=== PATIENT | female | born 1940 | race Caucasian/White ===

== ENCOUNTER 2017-09-01 14:06 | Emergency (ER) | payer OTHER, MEDICARE ==
[~2017-09-01] VITALS: Ht 157.5 cm; Wt 59.0 kg
[2017-09-01 14:13] VITALS: BP 162/86
--- NOTE | 2017-09-01 15:58 | CT SCAN REPORT ---
EXAMINATION: CT HEAD WITHOUT CONTRAST CLINICAL INFORMATION: MS history. Seizures the past few days COMPARISON: None. TECHNIQUE: Contiguous axial imaging was performed from the skull base to vertex without intravenous administration of contrast. The images are degraded by motion artifact. DLP: 612 mGy-cm. FINDINGS: There is no intracranial hemorrhage, large infarction, or mass lesion. There is no extra-axial collection. There is moderate scattered hypoattenuation in the bilateral cerebral white matter. There is mild diffuse brain parenchymal volume loss. There is no evidence of hydrocephalus. The visualized paranasal sinuses and mastoid air cells are clear. IMPRESSION: No acute intracranial abnormality. Moderate hypoattenuation in the bilateral cerebral white matter which is nonspecific and could represent changes related to reported history of MS or small vessel ischemia.
[2017-09-01 16:35] LABS: ABSOLUTE BASOPHIL COUNT 0 /CUMM (0.0-0.2); ABSOLUTE EOSINOPHIL COUNT 0.1 /CUMM (0.0-0.7); ABSOLUTE GRANULOCYTE CT 10.6 /CUMM (1.4-6.5); ABSOLUTE LYMPH COUNT 1.1 /CUMM (1.2-3.4); ABSOLUTE MONOCYTE COUNT 0.5 /CUMM (0.10-0.60); BASOPHIL % 0.2 % (0.0-2.0); EOSINOPHIL % 0.5 % (0-5); HEMATOCRIT 39.2 % (37-47); MEAN CORPUSCULAR HGB 30.8 PG (27.0-31.0); MEAN CORPUSCULAR HGB CONC 33.7 G/DL (33.0-37.0); MEAN CORPUSCULAR VOLUME 91.5 FL (81.0-99.0); MEAN PLATELET VOLUME 8.9 FL (7.4-10.4); PLATELET COUNT 219 /CUMM (130-400); RBC DISTRIBUTION WIDTH 13.2 % (11.5-14.5); RED BLOOD CELL CT 4.28 /CUMM (4.20-5.40); WHITE BLOOD CELL COUNT 12.3 /CUMM (4.8-10.8)
--- NOTE | 2017-09-01 16:44 | ED GENERAL ADULT ---
History of Present Illness General Chief Complaint: Seizure Stated Complaint: Right face pain Source: patient, family Exam Limitations: no limitations Vital Signs & Intake/Output Vital Signs & Intake/Output Vital Signs Date Time Temp Pulse Resp B/P B/P Pulse O2 O2 Flow FiO2 Mean Ox Delivery Rate 09/01 1628 Room Air 09/01 1413 97.5 74 20 162/86 96 Room Air Allergies Coded Allergies: ibuprofen (THROAT SWELLING 09/01/17) Reconcile Medications Ascorbate Calcium (Vitamin C) (Unknown Strength) TABLET (Unknown Dose) PO DAILY SUPPLEMENT (Reported) Cholecalciferol (Vitamin D3) (Vitamin D) (Unknown Strength) TABLET (Unknown Dose) PO DAILY SUPPLEMENT (Reported) [place]-3 Fatty Acids/Fish Oil (Fish Oil 1,200 MG Softgel) (Unknown Strength) CAPSULE (Unknown Dose) PO DAILY SUPPLEMENT (Reported) Vitamin B Complex 1 EACH CAPSULE 1 CAP PO DAILY SUPPLEMENT (Reported) Triage Note: STATES SHE HAS MS AND FOR THE PAST 3 DAYS SHE HAS BEEN HAVING SEIZURES, WITNESSED BY HER SON. PT DIDN'T WANT TO BE SEEN WHICH IS WHY THEY DIDN'T COME IN SOONER. STATES WHEN SHE LAYS BACK SHE FEELS A TINGLING IN HER MOUTH THEN GOES INTO HER CHEEK AND TOP OF HER HEAD Triage Nurses Notes Reviewed? 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 She has not taken any medication yet for the pain. Past History Travel History Traveled to [place] past 21 day No Medical History Any Pertinent Medical History? see below for history Neurological: multiple sclerosis Surgical History Surgical History: none Psychosocial History What is your primary language [place] Citizen Tobacco Use: Never used ETOH Use: denies use Illicit Drug Use: denies illicit drug use Family History Hx Contributory? No Review of Systems Review of Systems Constitutional: Reports: no symptoms. EENTM: Reports: see HPI. Respiratory: Reports: no symptoms. Cardiovascular: Reports: no symptoms. GI: Reports: no symptoms. Genitourinary: Reports: no symptoms. Musculoskeletal: Reports: no symptoms. Skin: Reports: no symptoms. Neurological/Psychological: Reports: see HPI. Hematologic/Endocrine: Reports: no symptoms. Immunologic/Allergic: Reports: no symptoms. Physical Exam Physical Exam General Appearance: well developed/nourished, no apparent distress, alert, awake , anxious Comments: Alert and oriented 76-year-old female with no acute distress apart from intermittent episodes of severe right facial pain which appear to come without any precipitating event or preceding symptom, chronically weak in bilateral lower extremities, 4/5 strength in bilateral upper extremities with intact sensation throughout. Vision is grossly normal with normal extraocular movements, cranial nerves II through XII are normal as tested. Ear nose and throat exam otherwise unremarkable, lungs are clear, no murmurs, regular rate and rhythm, abdomen benign, soft, nontender. Core Measures ACS in differential dx? No CVA/TIA Diagnosis: No Sepsis Present: No Sepsis Focused Exam Completed? No Progress Differential Diagnoses I considered the following diagnoses in my evaluation of the patient: Most likely trigeminal neuralgia, could be multiple sclerosis complication, low suspicion for acute cerebrovascular accident, seizure activity, metabolic derangement or infectious process. Specifically, low concern for encephalitis or meningitis given supple neck, lack of headache, fever, altered mental status. Plan of Care: Orders Procedure Date/time Status URINE DRUG SCREEN FOR ER ONLY 09/01 1526 Active URINALYSIS 09/01 1526 Active TROPONIN LEVEL 09/01 1526 Complete PROLACTIN 09/01 1526 Complete ETHANOL 09/01 1526 Complete COMPREHENSIVE METABOLIC PANEL 09/01 1526 Complete CBC WITHOUT DIFFERENTIAL 09/01 1526 Complete EKG 09/01 1526 Active Laboratory Tests 09/01/17 1620: Anion Gap 10, Estimated GFR > 60, BUN/Creatinine Ratio 28.6 H, Glucose 86, Calcium 9.3, Total Bilirubin 0.6, AST 32, ALT 29, Alkaline Phosphatase 85, Troponin I < 0.01, Total Protein 6.7, Albumin 3.9, Globulin 2.8, Albumin/ Globulin Ratio 1.4, Prolactin 44.4 H, CBC w Diff NO MAN DIFF REQ, RBC 4.28, MCV 91.5, MCH 30.8, MCHC 33.7, RDW 13.2, MPV 8.9, Gran % 85.8 H, Lymphocytes % 9.3 L, Monocytes % 4.2, Eosinophils % 0.5, Basophils % 0.2, Absolute Granulocytes 10.6 H, Absolute Lymphocytes 1.1 L, Absolute Monocytes 0.5, Absolute Eosinophils 0.1, Absolute Basophils 0, Serum Alcohol < 10.0 Plan for basic labs, CT head is negative, plan to consult litigation counsel neurology for treatment plan and possible reassessment as an outpatient. Case discussed with on-call neurologist Dr. Espinosa, he agrees that the symptoms are consistent with trigeminal neuralgia. He recommends starting the patient on 200 mg of carbamazepine every 12 hours for the next 2 weeks with outpatient follow-up with his service. Patient given first dose in the emergency department, discharged home with plan to follow-up with neurology. Return precautions provided. Initial ED EKG: normal intervals, normal p-waves, normal QRS complex, normal sinus rhythm, leftward axis; unclear chronicity; non-ischemic Departure Departure Time of Disposition: 1736 Disposition: HOME OR SELF CARE Condition: Stable Clinical Impression Primary Impression: Trigeminal neuralgia of right side of face Referrals: Unknown (PCP/Family) Additional Instructions: Please return to the emergency department if you develop any worsening symptoms or numbness or trouble with your vision. Also you develop any difficulty in speaking, thinking or any other concerning symptoms. Departure Forms: Customer Survey General Discharge Information Prescriptions: Current Visit Scripts Carbamazepine 1 CAP PO BID #[id number] CAP Critical Care Note Critical Care Note Critical Care Time: non-applicable
[2017-09-01 17:03] LABS: GRANULOCYTE % 85.8 % (42.2-75.2)
[2017-09-01] MEDS ORDERED: VITAMIN D2000 UNI1 PO (17:15)
[2017-09-01] MEDS ORDERED: VITAMIN C500 M6 PO (17:15)
[2017-09-01] MEDS ORDERED: VITAMIN B COMP1 EACH PO (17:16)
[2017-09-01] MEDS ORDERED: FISH OIL 1,2001 EAC4 PO (17:16)
[2017-09-01] MEDS ORDERED: CARBAMAZEPINE200 M6 PO (17:42)
== END 2017-09-01 18:43 ==
LOC: ERH 14:06
PROVIDERS: Physician Assistant
DX: G50.0 Trigeminal neuralgia (principal); R51 Headache
CPT/HCPCS: 80307; 93005; 93010; G0480